=== PATIENT | male | born 1935 | race Caucasian/White ===

== ENCOUNTER 2017-05-04 16:04 | Inpatient (IN) ==
[2017-05-04] MEDS ORDERED: IPRATROPIUM/ALBUTEROL 3 ML AMPUL.NEB NEB ONE (16:10)
[2017-05-04] MEDS ORDERED: ONDANSETRON 4 MG/2 ML VIAL IV ONE (16:12)
[2017-05-04] MEDS ORDERED: 0.9 % SODIUM CHLORIDE 1,000 ML IV ONE ×2 (16:28→18:40)
--- NOTE | 2017-05-04 16:32 | XRay Report ---
CLINICAL INFORMATION: Dyspnea. Wheezing. TECHNIQUE: AP portable upright chest x-ray COMPARISON: Previous chest x-rays dated 12/28/2016 and 02/29/2016 FINDINGS: No focal pulmonary parenchymal infiltrate or mass. Lungs are negative. Heart size is within normal limits. No cardiomegaly. Normal pulmonary vascularity. No pulmonary edema. No pulmonary congestion. No pleural fluid. IMPRESSION: No acute abnormality. Interpreted and Authenticated by: Jasson Sauceda 05/04/17
[2017-05-04 16:54] LABS: Mean Cell Volume 100.3 fL (80.0-100.0); Mean Corpuscular HGB Conc 34.3 g/dL (31.0-36.0); Mean Corpuscular Hemoglobin 34.4 pg (26.0-34.0); Platelet Count 194 K/mcL (140-440); RBC 3.39 M/mcL (4.50-5.90); Red Cell Distribution Width 14.3 % (11.5-14.5)
[2017-05-04 17:10] LABS: ALT/SGPT 9 U/l (0-40); Albumin/Globulin Ratio 1.5 (1.0-2.3); Alkaline Phosphatase 61 U/L (39-117); Blood Urea Nitrogen 20 mg/dl (8-23)
[2017-05-04 17:22] LABS: Anisocytosis 1+ (NONE SEEN); Basophils % (Manual) 1 % (0-2); Eosinophils % (Manual) 1 % (0-7); Lymphocytes % 26 % (15-49); Monocytes % (Manual) 20 % (1-12); Platelet Estimate NORMAL (NORMAL); RBC Morphology ABNORM (NORMAL); Segmented Neutrophils % 52 % (38-78)
--- NOTE | 2017-05-04 19:05 | Emergency Department Note ---
Weakness HPI - General Chief complaint: Weakness Stated complaint: Weakness, dizziness, nausea Time Seen by Provider: 05/04/17 16:27 Source: patient Mode of arrival: EMS Limitations: no limitations - History of Present Illness HPI Narrative: 82-year-old male with a 3-4 day history of nausea without vomiting, weakness and confusion. Today he fell at home and managed to crawl out onto the deck. This was not witnessed but he did not hit his head or lose consciousness he just scraped his knee. He has been having some loose stool as well after getting fiber supplement from his . Decreased appetite. Temperature on entry to the ER is 99.9. Denies any significant pain shortness of breath or upper respiratory symptoms - Related Data Home Medications Medication Instructions Recorded Confirmed cyanocobalamin (vit B-12) 1,000 1,000 mcg PO QDAY tab 07/06/15 05/04/17 mcg tablet cholecalciferol (vitamin D3) 2,000 2,000 unit PO QDAY 04/05/16 05/04/17 unit capsule Previous Rx's Medication Instructions Recorded clobetasol 0.05 % topical cream 1 applic TOPICAL BID #15 g 06/28/16 tamsulosin 0.4 mg capsule 0.4 mg PO QDAY #90 cap 06/28/16 carvedilol 6.25 mg tablet 6.25 mg PO BID #180 tab 11/10/16 omeprazole 20 mg capsule,delayed 20 mg PO QDAY #90 cap 11/10/16 release ipratropium-albuterol 0.5 mg-3 3 ml INHALATION Q6HP PRN #120 ml 11/14/16 mg(2.5 mg base)/3 mL nebulization soln levothyroxine 50 mcg capsule 50 mcg PO QDAY 90 Days 11/16/16 allopurinol 100 mg tablet 100 mg PO QDAY #90 tab 01/30/17 folic acid 1 mg tablet 1 mg PO DAILY #90 tab 03/17/17 valsartan 40 mg tablet 40 mg PO QDAY #90 tab 03/17/17 furosemide 40 mg tablet 40 mg PO QDAY #90 tab 03/22/17 budesonide 0.25 mg/2 mL suspension 0.25 mg INHALATION BID #120 ml 04/11/17 for nebulization Allergies Allergy/AdvReac Type Severity Reaction Status Date / Time No Known Drug Allergies Allergy Verified 03/15/17 09:26 Review of Systems All systems ED: reviewed and negative except as stated. Past Medical History - Past Medical History Attestation: Yes: The following information was validated with the patient. Medical history: Reports: arthritis, CHF (35% ejection fraction or so per report ), COPD (On 2 L at home at night), coronary artery disease, GERD, hyperlipidemia , hypertension, myocardial infarction, osteoporosis, thyroid disease, other ( diverticulosis, gout) Surgical history ED: Reports: cataract, thyroidectomy, other (Seeds for prostate cancer) - Social History smoking status: Former smoker Alcohol use: Reports: Rarely Drug use: Reports: none Physical Exam Elderly male mildly ill-appearing. Normocephalic atraumatic. Conjunctive a clear sclerae nonicteric. No nasal congestion or discharge but he is wearing a nasal cannula oxygen. Oropharynx is pink and moist. Neck is supple without lymphadenopathy or thyromegaly. Heart is regular rate and rhythm no murmurs appreciated. Lungs are basically clear to auscultation bilaterally except for end expiratory wheeze mild dyspnea with exertion. No rales. Abdomen is soft nontender nondistended. No pedal edema. +2 radial pulse. Skin exam shows small dime sized abrasion on left patella area but otherwise no trauma seen. He is alert oriented and able to answer questions and does not seem particularly confused to me. However he is mentating slower than expected. No dysarthria or ataxia is noted - General Limitations: no limitations Course Vital Signs Temperature 99.9 F H 05/04/17 16:06 Pulse Rate 70 05/04/17 16:06 Respiratory Rate 20 05/04/17 16:06 Blood Pressure 123/83 05/04/17 16:06 Pulse Oximetry (%) 95 05/04/17 16:06 Temperature 98.2 F 05/05/17 04:22 Pulse Rate 62 05/05/17 03:08 Respiratory Rate 16 05/05/17 04:22 Blood Pressure 140/72 05/05/17 04:22 Pulse Oximetry (%) 91 05/05/17 04:22 Weakness - Lab Data Lab results reviewed: Yes I reviewed the patient's lab results. Result diagrams: 05/05/17 04:20 05/05/17 04:20 Lab Results 07/20/17 07/20/17 07/20/17 Range/Units 16:21 16:21 16:21 WBC 5.5 (4.5-11.0) K/mcL RBC 3.39 L (4.50-5.90) M/mcL Hgb 11.7 L (13.5-16.5) g/dL Hct 34.0 L (41.0-55.0) % MCV 100.3 H (80.0-100.0) fL MCH 34.4 H (26.0-34.0) pg MCHC 34.3 (31.0-36.0) g/dL RDW 14.3 (11.5-14.5) % Plt Count 194 (140-440) K/mcL MPV 7.9 (7.4-10.4) fL Total Counted 100 Seg Neutrophils % 52 (38-78) % Band Neutrophils % Not Reportable Lymphocytes % 26 (15-49) % Monocytes % (Manual) 20 H (1-12) % Eosinophils % (Manual) 1 (0-7) % Basophils % (Manual) 1 (0-2) % Platelet Estimate Normal (NORMAL) RBC Morphology Abnorm A (NORMAL) Anisocytosis 1+ A (NONE SEEN) VBG Lactic Acid 0.8 (0.5-2.2) mmol/L Sodium 127 L (133-145) mmol/L Potassium 4.4 (3.3-5.1) mmol/L Chloride 88 L (96-108) mmol/L Carbon Dioxide 25 (22-30) mmol/L Anion Gap 14.0 (8-16) BUN 20 (8-23) mg/dl Creatinine 1.1 (0.7-1.2) mg/dl GFR Calculation 61 Glucose 108 H (70-105) mg/dL Calcium 8.6 (8.6-10.4) mg/dl Total Bilirubin 0.5 (0.0-1.0) mg/dL AST 15 (0-37) U/l ALT 9 (0-40) U/l Alkaline Phosphatase 61 (39-117) U/L NT-Pro-B Natriuret Pep (0-450) pg/ml Total Protein 6.6 (5.9-8.4) gm/dL Albumin 4.0 (3.2-5.2) gm/dL Globulin 2.6 (2.2-3.7) gm/dL Albumin/Globulin Ratio 1.5 (1.0-2.3) Procalcitonin (<0.10) ng/mL TSH (0.27-5.01) uIU/ml 05/04/17 05/04/17 05/04/17 Range/Units 16:21 16:21 16:21 WBC (4.5-11.0) K/mcL RBC (4.50-5.90) M/mcL Hgb (13.5-16.5) g/dL Hct (41.0-55.0) % MCV (80.0-100.0) fL MCH (26.0-34.0) pg MCHC (31.0-36.0) g/dL RDW (11.5-14.5) % Plt Count (140-440) K/mcL MPV (7.4-10.4) fL Total Counted Seg Neutrophils % (38-78) % Band Neutrophils % Lymphocytes % (15-49) % Monocytes % (Manual) (1-12) % Eosinophils % (Manual) (0-7) % Basophils % (Manual) (0-2) % Platelet Estimate (NORMAL) RBC Morphology (NORMAL) Anisocytosis (NONE SEEN) VBG Lactic Acid (0.5-2.2) mmol/L Sodium (133-145) mmol/L Potassium (3.3-5.1) mmol/L Chloride (96-108) mmol/L Carbon Dioxide (22-30) mmol/L Anion Gap (8-16) BUN (8-23) mg/dl Creatinine (0.7-1.2) mg/dl GFR Calculation Glucose (70-105) mg/dL Calcium (8.6-10.4) mg/dl Total Bilirubin (0.0-1.0) mg/dL AST (0-37) U/l ALT (0-40) U/l Alkaline Phosphatase (39-117) U/L NT-Pro-B Natriuret Pep 1783.0 H (0-450) pg/ml Total Protein (5.9-8.4) gm/dL Albumin (3.2-5.2) gm/dL Globulin (2.2-3.7) gm/dL Albumin/Globulin Ratio (1.0-2.3) Procalcitonin < 0.05 (<0.10) ng/mL TSH 2.06 (0.27-5.01) uIU/ml Urinalysis point of care dipstick shows specific gravity 1.015 otherwise normal - Radiology Data Radiology results reviewed: Yes I reviewed the patient's radiology results. Chest x-ray shows no acute cardiopulmonary disease CT the head shows no acute abnormality-chronic small vessel ischemic changes - EKG Data EKG attestation: Yes I reviewed and interpreted this EKG. EKG results narrative: EKG shows left bundle branch block but otherwise normal sinus rhythm with a rate of 64 no evidence of ischemia Disposition Pt seen by [employer]S MANAGER/PA only: No (MD only) Clinical Impression: Fever, unknown origin Summary: Patient had a fall in conjunction with lightheadedness weakness confusion and fever. He did not injure himself on the fall but concern for where the fever is coming from-at this point exam imaging and laboratory are not revealing-He is not complaining of significant pain. Discussed scenario with Dr. Wilson who agreed to accept patient for further workup and evaluation as an inpatient Disposition: Xfer As Inpt ([facility] Condition: Fair
--- NOTE | 2017-05-04 19:38 | Cat Scan Report ---
CLINICAL INFORMATION: Weakness COMPARISON: MRI scan 03/26/2009 TECHNIQUE: Axial noncontrast-enhanced images through the brain. FINDINGS: No acute intracranial hemorrhage. No subdural hematoma. No subarachnoid hemorrhage. No intra-axial hematoma. There is extensive white matter abnormality consistent with small vessel ischemic change. No focal attenuation abnormality or localized mass effect. There is atrophy with ventricular enlargement and enlargement of superficial subarachnoid spaces. No hyperdense middle cerebral artery sign Brainstem and cerebellum are negative. No calvarial fracture. No lytic lesion. Skull base is negative IMPRESSION: 1. Cerebral atrophy 2. White matter abnormality consistent with small vessel ischemic change 3. No acute intracranial hemorrhage Interpreted and Authenticated by: Jasson Sauceda 05/04/17
[2017-05-04] MEDS ORDERED: HYDROcodone/APAP 5/325MG TABLET PO PRN (20:22)
[2017-05-04] MEDS ORDERED: ONDANSETRON 4 MG/2 ML VIAL IV PRN (20:22)
[2017-05-04] MEDS ORDERED: MAGNESIUM HYDROXIDE 30 ML ORAL.SUSP PO PRN (20:22)
[2017-05-04] MEDS ORDERED: ACETAMINOPHEN 325 MG TABLET PO PRN (20:22)
[2017-05-04] MEDS ORDERED: NALOXONE HCL 0.4 MG/ML VIAL IV PRN (20:22)
[2017-05-04] MEDS ORDERED: predniSONE 20 MG TABLET PO ONE (20:34)
[2017-05-04] MEDS ORDERED: AZITHROMYCIN 250 MG TABLET PO ONE (20:34)
--- NOTE | 2017-05-04 20:45 | Internal Med History&Physical ---
Medical - H&P: HPI Patient information: Note initiated : 05/04/17 at 8:39 pm Service Date, if different from initiated Date: [] Patient: Cezar Damon a 82 y/o M admitted on 05/04/17 for Weakness, dizziness, nausea. Chief Complaint: [] History of present illness: Mr. Damon is a 82 year old M with h/o chf, copd, OA, mild memory loss, lives with his , presents to the ER with complaints of weakness and not feeling well x 1 week. according to the patient he has not been feeling well and his condition has been gradually declining, however over the last 1 week he has noticed that he has been much more weaker than usual. Walking across the room without getting short of breath. He has had multiple episodes of falls, denies any presyncope or syncopal like episodes. The patient notes that he gets up from the bed and after while feels weak in his knees and drops down. He denies any acute head injury. The patient notes he may have had a viral syndrome,and lower abdominal pain associated with some nausea over the last 1 week. he pain is intermittent in the lower abdomen, no aggravating or relieving factors, nonradiating, not associated with food always or micturition, He has had decline in his oral intake and has not eaten much since then. He admits to being compliant with his medications. according to the patient's the patient is also more confused and more forgetful over the last 1 week. The patient presented to the ER where he had low-grade temperature of 99.9,his sodium level was 127 and chloride was 84, the rest of the blood work was unremarkable, he had a negative chest x-ray, negative CT head normal WBC count, and a normal TSH level. Given that the patient was weakand unable to return home safely withlow sodium he was admitted to the hospital for further management. On my exam I noted that the patient also had wheezing,and decreased air entry bilaterally, which seems to be a chronic issue for him as his PCP also noted the same in his last note. but given the decline in his functional status I will treat them as COPD exacerbation with prednisone and nebulizers. All systems: reviewed and no additional remarkable complaints except as stated ( as per HPI) Medical - H&P: [facility] Medical history: Medical History (Last Updated 05/04/17 @ 20:45 by Fernando Wilson MD) Hypothyroidism (Chronic) Carcinoma of prostate (Chronic) Peripheral Vascular Disease (Chronic) Pain in both knees (Chronic) History of echocardiogram (Chronic 09/28/15) Diverticulitis (Resolved) Anemia (Chronic) Cardiomyopathy (Chronic) Constipation (Chronic) Diverticulosis of intestine (Chronic) Urethral discharge (Resolved 04/07/14) Sepsis (Resolved 06/06/13) Rhabdomyolysis (Resolved 06/06/14) Respiratory failure, acute (Resolved 06/06/13) Renal insufficiency (Chronic) Renal failure, acute (Resolved 06/06/13) Radicular leg pain (Chronic) Pulmonary edema (Resolved) Pneumonia (Resolved) Peptic ulcer disease (Inactive) Osteopenia (Chronic) Olecranon bursitis (Resolved 06/06/13) Myocardial infarction acute (Inactive 06/06/13) Lower extremity weakness (Chronic 06/06/13) Low back pain (Chronic) Right leg swelling (Resolved) Hyperkalemia (Chronic) Hernia, hiatal (Chronic) Hemorrhoids, internal (Chronic 01/27/14) Hematochezia (Resolved) Gout (Chronic 01/20/14) Diverticulitis of colon (Resolved) Degenerative arthritis (Chronic) CHF (congestive heart failure) (Resolved) Coccyx pain (Chronic) Cervicalgia (Chronic) Cardiomegaly (Chronic) Bronchitis, chronic (Chronic) Aspiration pneumonia (Resolved 06/06/13) Chronic kidney disease (CKD) (Chronic) Colon adenoma (Chronic) Prostate cancer (Inactive) Shortness of breath (Chronic) Esophageal stricture (Chronic) GERD (gastroesophageal reflux disease) (Chronic) Anemia, macrocytic (Chronic) Beck esophagus (Chronic) Osteoarthritis (Chronic) Hyperlipidemia (Chronic) Hypertension (Chronic) Type 2 diabetes mellitus (Chronic) Nocturnal hypoxia (Chronic 04/09/14) Dysphagia (Chronic 08/06/13) Blister (Resolved) Chronic obstructive pulmonary disease (Chronic) Low oxygen saturation (Resolved) Abdominal pain (Resolved) Surgical history: Past Surgical History (Last Updated 03/02/17 @ 14:10 by [email or web address]) History of prostate surgery (Resolved) H/O thyroidectomy (Resolved) Feeding by G-tube (Resolved) H/O esophagogastroduodenoscopy (Resolved 01/31/14) H/O cystoscopy (Resolved) History of colonoscopy (Resolved 01/27/14) Pertinent family history: Family History Mother Cerebrovascular accident (CVA) Unknown Diabetes mellitus Father Malignant neoplasm of prostate Medical - H&P: Meds Home Medications Medication Instructions Recorded Confirmed Type cyanocobalamin (vit B-12) 1,000 1,000 mcg PO QDAY tab 07/06/15 05/04/17 History mcg tablet cholecalciferol (vitamin D3) 2,000 2,000 unit PO QDAY 04/05/16 05/04/17 History unit capsule clobetasol 0.05 % topical cream 1 applic TOPICAL BID #15 g 06/28/16 05/04/17 Rx tamsulosin 0.4 mg capsule 0.4 mg PO QDAY #90 cap 06/28/16 05/04/17 Rx carvedilol 6.25 mg tablet 6.25 mg PO BID #180 tab 11/10/16 05/04/17 Rx omeprazole 20 mg capsule,delayed 20 mg PO QDAY #90 cap 11/10/16 05/04/17 Rx release ipratropium-albuterol 0.5 mg-3 3 ml INHALATION Q6HP PRN #120 ml 11/14/16 Rx mg(2.5 mg base)/3 mL nebulization soln levothyroxine 50 mcg capsule 50 mcg PO QDAY 90 Days 11/16/16 05/04/17 Rx allopurinol 100 mg tablet 100 mg PO QDAY #90 tab 01/30/17 05/04/17 Rx folic acid 1 mg tablet 1 mg PO DAILY #90 tab 03/17/17 05/04/17 Rx valsartan 40 mg tablet 40 mg PO QDAY #90 tab 03/17/17 05/04/17 Rx furosemide 40 mg tablet 40 mg PO QDAY #90 tab 03/22/17 05/04/17 Rx budesonide 0.25 mg/2 mL suspension 0.25 mg INHALATION BID #120 ml 04/11/1705/04 Rx for nebulization Allergies Allergy/AdvReac Type Severity Reaction Status Date / Time No Known Drug Allergies Allergy Verified 12/28/16 09:26 Medical - H&P: Exam - Constitutional Vitals: Temp Pulse Resp BP Pulse Ox 97.6 F 60 20 121/76 96 05/04/17 18:18 05/04/17 19:02 05/04/17 19:02 05/04/17 19:02 05/04/17 19:02 Exam: GENERAL: The patient is a well-developed, well-nourished in no apparent distress. Is alert and oriented x3. VITAL SIGNS: Reviewed and as noted elsewhere. HEENT: Head is normocephalic and atraumatic. Extraocular muscles are intact. Pupils are equal, round, and reactive to light. Nares appeared normal. Mouth appears any without lesions. Mucous membranes are dry NECK: Normal to inspection, Supple, No lymphadenopathy or thyromegaly. LUNGS: Air entry equal on both sides, air entry decreased in both side, prolonged expiratory phase, bilateral wheezing. HEART: Regular rate and rhythm normal, S1 and S2 heard, no Gallop, S3 or Rub Noted, No Gross murmur heard. ABDOMEN: Soft, nontender, and nondistended. Positive bowel sounds. No hepatosplenomegaly was noted. EXTREMITIES: No cyanosis, clubbing, rash, lesions or edema. NEUROLOGIC: alert and oriented Cranial nerves II through XII are grossly intact. Motor and Sensory System Grossly Intact PSYCHIATRIC: Normal affect, Normal Mood. Appropriate Behavior. SKIN: No ulceration or wounds noted, No jaundice, No rash noted. Medical - H&P: Reslt - Labs CBC & Chem 7: 05/04/17 16:21 05/04/17 16:21 Medical - H&P: A/P - Narrative A/P Narrative: A/P Acute Hyponatremia: clinically dry, poor intake, along with use of lasix may have resulted in Hypovolumic hyponatremia, IV fljids for now, hold lasix, Reassess in AM, cortisol check in AM tsh is normal, Will broaden workup if sodium level does not return to normal with fluids. COPD exacerbation-given the patient has decreased functional status, low-grade temperature,bilateral wheezing will treat with azithromycin, D.O. nebs,and oral prednisone. Increased frequency of falls-clinically does not appear to be syncope or presyncope, given his history of heart failure will monitor on telemetry to see if he has any transient arrhythmias. Most likely due to weakness secondary to dehydration Increased confusion, secondary to above, ABGs reviewed no evidence of CO2 narcosis. Congestive heart failure or more clinically dry at this point hold Lasix for now , IV fluids, continue his area arb and beta blockers. [id number] fever, resolved the ED, chest x-ray is negative, urinalysis is normal, pro-calcitonin is negative, blood pressure is stable and lactic acid is normal, we'll just monitor for now. Likely from the viral syndrome. Next Abdominal pain-likely viral in nature, patient had some nausea but no vomiting, if patient's symptoms persist we'll get a CT abdomen and pelvis with contrast for further evaluation Should he develop fever again we'll definitely get a CT abdomen and pelvis. Blood cultures have been drawn. DVT hep sq Diet cardiac Full code. 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
[2017-05-04] MEDS ORDERED: BUDESONIDE 1 PUFF INHALER INH SCH (21:00)
[2017-05-04] MEDS: 0.9 % SODIUM CHLORIDE 1,000 ML IV SCH (21:13)
[2017-05-04] MEDS: BUDESONIDE 0.5 MG/2 ML AMPUL.NEB NEB SCH (21:13)
[2017-05-04] MEDS: IPRATROPIUM/ALBUTEROL 3 ML AMPUL.NEB NEB SCH (22:48)
[2017-05-05] MEDS: IPRATROPIUM/ALBUTEROL 3 ML AMPUL.NEB NEB SCH ×6 (02:56→22:52)
[2017-05-05 06:20] LABS: Basophils # (Auto) 0 K/mcL (0.0-0.3); Basophils % (Auto) 0 % (0.0-2.0); Eosinophils # (Auto) 0 K/mcL (0.0-0.7); Eosinophils % (Auto) 0 % (0.0-7.0); Granulocytes % (Auto) 90.2 % (38.0-78.0); Lymphocytes # (Auto) 0.5 K/mcL (1.5-4.8); Mean Cell Volume 102.9 fL (80.0-100.0); Mean Corpuscular HGB Conc 33.9 g/dL (31.0-36.0); Mean Corpuscular Hemoglobin 34.9 pg (26.0-34.0); Monocytes # (Auto) 0.1 K/mcL (0.1-0.9); Monocytes % (Auto) 1.8 % (1.0-12.0); Platelet Count 197 K/mcL (140-440); RBC 3.36 M/mcL (4.50-5.90); Red Cell Distribution Width 14.5 % (11.5-14.5)
[2017-05-05 06:57] LABS: ALT/SGPT 9 U/l (0-40); Albumin 3.7 gm/dL (3.2-5.2); Albumin/Globulin Ratio 1.4 (1.0-2.3); Alkaline Phosphatase 59 U/L (39-117); Bilirubin,Direct < 0.2 mg/dL (0.0-0.3); Blood Urea Nitrogen 18 mg/dl (8-23); Gamma Glutamyl Transpeptidase 16 U/L (8-61); Magnesium 1.7 mg/dL (1.6-2.5); Uric Acid 4.8 mg/dL (2.5-8.0)
[2017-05-05] MEDS: BUDESONIDE 0.5 MG/2 ML AMPUL.NEB NEB SCH ×2 (07:38→19:23)
[2017-05-05] MEDS: LEVOTHYROXINE 50 MCG TABLET PO SCH (07:40)
[2017-05-05] MEDS ORDERED: 0.9 % SODIUM CHLORIDE 1,000 ML IV ONE (08:05)
[2017-05-05] MEDS: VITAMIN D3 1,000 UNIT TABLET PO SCH (10:00)
[2017-05-05] MEDS: AZITHROMYCIN 250 MG TABLET PO SCH (10:32)
[2017-05-05] MEDS: LOSARTAN 25 MG TABLET PO SCH (10:33)
[2017-05-05] MEDS: TAMSULOSIN 0.4 MG CAPSULE PO SCH (10:33)
[2017-05-05] MEDS: CYANOCOBALAMIN (VITAMIN B-12) 500 MCG TABLET PO SCH (10:33)
[2017-05-05] MEDS: FOLIC ACID 1 MG TABLET PO SCH (10:33)
[2017-05-05] MEDS: CARVEDILOL 3.125 MG TABLET PO SCH ×2 (10:34→17:36)
[2017-05-05] MEDS: ALLOPURINOL 100 MG TABLET PO SCH (10:34)
[2017-05-05] MEDS: predniSONE 20 MG TABLET PO SCH (10:34)
[2017-05-05] MEDS: OMEPRAZOLE 20 MG CAPSULE PO SCH (10:34)
[2017-05-05] MEDS: 0.9 % SODIUM CHLORIDE 1,000 ML IV SCH ×2 (10:35→22:51)
[2017-05-05 13:36] LABS: Blood Urea Nitrogen 18 mg/dl (8-23)
--- NOTE | 2017-05-05 15:43 | Internal Med Progress Note ---
Medical - PN: Subj Patient information: Note initiated : 05/05/17 at 3:43 pm Service Date, if different from initiated Date: [] Patient: Cezar Damon a 82 y/o M admitted on 05/04/17 for Weakness, Dizziness, Nausea/COPD, Hyponatremia. Chief Complaint: [] Interval history: Mr. Damon is a 82 year old M with h/o chf, copd, OA, mild memory loss, lives with his , presents to the ER with complaints of weakness and not feeling well x 1 week. according to the patient he has not been feeling well and his condition has been gradually declining, however over the last 1 week he has noticed that he has been much more weaker than usual. Walking across the room without getting short of breath. He has had multiple episodes of falls, denies any presyncope or syncopal like episodes. The patient notes that he gets up from the bed and after while feels weak in his knees and drops down. He denies any acute head injury. The patient notes he may have had a viral syndrome,and lower abdominal pain associated with some nausea over the last 1 week. he pain is intermittent in the lower abdomen, no aggravating or relieving factors, nonradiating, not associated with food always or micturition, He has had decline in his oral intake and has not eaten much since then. He admits to being compliant with his medications. according to the patient's the patient is also more confused and more forgetful over the last 1 week. The patient presented to the ER where he had low-grade temperature of 99.9,his sodium level was 127 and chloride was 84, the rest of the blood work was unremarkable, he had a negative chest x-ray, negative CT head normal WBC count, and a normal TSH level. Given that the patient was weakand unable to return home safely withlow sodium he was admitted to the hospital for further management. On my exam I noted that the patient also had wheezing,and decreased air entry bilaterally, which seems to be a chronic issue for him as his PCP also noted the same in his last note. but given the decline in his functional status I will treat them as COPD exacerbation with prednisone and nebulizers. 05/05: Patient seen examined, no acute events, feeling bit better, denies any abdominal symptoms, breathing better, but did not get out of bed this AM to know if his breathing is any better with activity. His labs reviewed NA is slightly worse at 126, will repeat this afternoon, his cortisol is low, but he did get prednisone last night, so not sure if this affected his readings, tsh is wnl. he appears more clear today. Pertinent ROS: Denies headache, dizziness Denies chest pain, palpitations Denies cough or shortness of breath (chr but improving) Denies abdominal pain, nausea or vomiting. - Constitutional Vitals: Vital Signs Temp Pulse Resp BP Pulse Ox 98.0 F 69 18 135/68 91 05/05/17 12:00 05/05/17 15:37 05/05/17 15:37 05/05/17 12:01 05/05/17 15:37 Period Temp Pulse Resp BP Sys/Soriano Pulse Ox Last 24 Hr 97.8 F-98.2 F 60-77 16-18 127-140/54-99 90-94 Intake and Output 05/05/17 05/05/17 05/05/17 05:59 13:59 21:59 Intake Total 60 / 60 2450 / 2450 240 / 240 Output Total 527 / 527 850 / 850 125 / 125 Balance -467 / -467 1600 / 1600 115 / 115 Weight 198 lb Patient Weight 05/06/17 05:59 Weight 198 lb Intake & Output: Intake & Output 05/05/17 05/05/17 05/05/17 05:59 13:59 21:59 Intake Total 60 / 60 2450 / 2450 240 / 240 Output Total 527 / 527 850 / 850 125 / 125 Balance -467 / -467 1600 / 1600 115 / 115 Weight 198 lb Intake: IV 1999 / 1999 Sodium Chloride 0.9% 1, 1000 / 1000 000 ml @ 84 mls/hr IV . [id number] DEEJAY Rx#:[id number] Oral 60 / 60 450 / 450 240 / 240 Output: Void Amount 525 / 525 850 / 850 125 / 125 # of times incontinent of 2 / 2 urine Other: Meal Breakfast Lunch Percent of Meal Consumed 100% 100% Feeding Ability Assist with Tray Set Up # Voids 4 # Bowel Movements 0 Exam: Constitutional; Afebrile, cooperative, alert, not in distress. Eyes- No icterus, , No periorbital swelling Ears- Ext ear normal, hearing normal to conversation. Neck- Midline trachea, supple Respiratory system: Air Entry equal on both sides, mild wheezing, prolonged exp phase. CVS- Rate rhythm regular, S1,S2 heard, no gallop, no rub. 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 Medical - PN: Obj Da - Labs CBC & Chem 7: 05/05/17 04:20 05/05/17 12:56 Labs: Abnormal Lab Results 05/05/17 05/05/17 05/05/17 12:56 04:20 04:20 RBC Hgb Hct MCV MCH Gran % Lymph % (Auto) Lymph # (Auto) Sodium 130 L 126 L Chloride 91 L Carbon Dioxide 18 L Glucose 116 H 117 H Calcium 8.2 L 8.3 L Cortisol AM Sample 3.9 L 05/05/17 04:20 RBC 3.36 L Hgb 11.7 L Hct 34.6 L MCV 102.9 H MCH 34.9 H Gran % 90.2 H Lymph % (Auto) 8.0 L Lymph # (Auto) 0.5 L Sodium Chloride Carbon Dioxide Glucose Calcium Cortisol AM Sample Meds: Medications Acetaminophen (Tylenol) 650 mg PO Q6HP PRN PRN Reason: PAIN/FEVER > 101 Hydrocodone Bitart/Acetaminophen (Hilo 5/325mg) 1 tab PO Q4HP PRN PRN Reason: Pain Albuterol/Ipratropium (Duoneb) 3 ml NEB Q4HRT [facility] Last Admin: 05/05/17 15:36 Dose: 3 ml Allopurinol (Zyloprim) 100 mg PO QDAY [facility] Last Admin: 05/05/17 10:34 Dose: 100 mg Azithromycin (Zithromax) 500 mg PO DAILY [facility] Stop: 05/08/17 09:01 Last Admin: 05/05/17 10:32 Dose: 500 mg Budesonide (Pulmicort) 0.25 mg NEB Q12 [facility] Last Admin: 05/05/17 07:38 Dose: 0.25 mg Carvedilol (Coreg) 6.25 mg PO BIDCC [facility] Last Admin: 05/05/17 10:34 Dose: 6.25 mg Cyanocobalamin (Vitamin B-12) 1,000 mcg PO DAILY [facility] Last Admin: 05/05/17 10:33 Dose: 1,000 mcg Folic Acid (Folic Acid) 1 mg PO DAILY [facility] Last Admin: 05/05/17 10:33 Dose: 1 mg Sodium Chloride (Sodium Chloride 0.9%) 1,000 mls @ 84 mls/hr IV .[id number] [facility] Stop: 05/06/17 08:04 Last Admin: 05/05/17 10:35 Dose: 84 mls/hr [facility]othy[facility]ine [facility]) [facility] Last Admin: 05/05/17 07:40 Dose: 50 mcg Losartan Potassium (Cozaar) 25 mg PO DAILY [facility] Last Admin: 05/05/17 10:33 Dose: 25 mg Magnesium Hydroxide (Milk Of Magnesia) 30 ml PO DAILYP PRN PRN Reason: Constipation Naloxone HCl (Narcan) 0.1 mg IV Q2MIN PRN PRN Reason: Opiate Reversal Omeprazole (Prilosec) 20 mg PO QDAY [facility] Last Admin: 05/05/17 10:34 Dose: 20 mg Ondansetron HCl (Zofran) 4 mg IV Q4HP PRN PRN Reason: Nausea And Vomiting Last Admin: 05/05/17 14:39 Dose: 4 mg Prednisone (Prednisone) 40 mg PO [facility] Last Admin: 05/05/17 10:34 Dose: 40 mg Tamsulosin HCl (Flomax) 0.4 mg PO QDAY [facility] Last Admin: 05/05/17 10:33 Dose: 0.4 mg Vitamin D (Vitamin D3) 2,000 unit PO DAILY [facility] Last Admin: 05/05/17 10:00 Dose: 2,000 unit Medical - PN: A/P - Time Spent With Patient Total time spent is greater than 50% in coordination of care (as documented) at patient's floor/unit and/or counseling patient: - Narrative A/P Narrative: A/P Acute Hyponatremia: clinically dry, poor intake, along with use of lasix may have resulted in Hypovolumic hyponatremia, continue IV fluids and repeat NA today ,if still low will obtain serum osm, urine osm. urine na. COPD exacerbation: clinically improving, continue steroids, duonebs and zithromax. Increased frequency of falls-clinically does not appear to be syncope or presyncope,tele neg so far, likely from weakness, iv fluids and monitor. Increased confusion, secondary to above, improving. Congestive heart failure or more clinically dry at this point hold Lasix for now , IV fluids, continue his area arb and beta blockers. [id number] fever, resolved no e/o infection. Abdominal pain-likely viral in nature, pt denies symptoms today, if recurs consider Abdominal CT DVT hep sq Diet cardiac Full code. Medical - PN: Qual - VTE Deep Vein Thrombosis/Pulmonary Embolism Present on Admission: No
[2017-05-05 21:50] LABS: Appearance,Urine CLEAR; Bacteria,Urine FEW /hpf (0); Bilirubin,Urine NEG (NEG); Color,Urine YELLOW; Glucose,Urine (UA) NEGATIVE (NEG); Leukocyte Esterase,Urine NEG /uL (NEG); Mucus,Urine FEW /hpf (0); Nitrate,Urine NEG (NEG); Protein,Urine NEG (NEG); Specific Gravity,Urine 1.014 (1.000-1.035); Urine Blood NEG mg/dL (<0.03); Urine RBC < 1 /hpf (0-1); Urine Squamous Epithelial Cell 0 /hpf (0-4); Urine WBC < 1 /hpf (0-4); Urobilinogen,Urine NEG (NEG)
[2017-05-06] MEDS: IPRATROPIUM/ALBUTEROL 3 ML AMPUL.NEB NEB SCH ×6 (02:25→23:22)
[2017-05-06 05:45] LABS: Basophils # (Auto) 0 K/mcL (0.0-0.3); Basophils % (Auto) 0 % (0.0-2.0); Eosinophils # (Auto) 0 K/mcL (0.0-0.7); Eosinophils % (Auto) 0.2 % (0.0-7.0); Granulocytes % (Auto) 88.7 % (38.0-78.0); Lymphocytes # (Auto) 0.6 K/mcL (1.5-4.8); Lymphocytes % (Auto) 4.6 % (15.5-49.0); Mean Cell Volume 102.5 fL (80.0-100.0); Mean Corpuscular Hemoglobin 34.8 pg (26.0-34.0); Monocytes # (Auto) 0.8 K/mcL (0.1-0.9); Monocytes % (Auto) 6.5 % (1.0-12.0); Platelet Count 186 K/mcL (140-440); RBC 2.93 M/mcL (4.50-5.90); Red Cell Distribution Width 14.3 % (11.5-14.5)
[2017-05-06 06:06] LABS: ALT/SGPT 8 U/l (0-40); Albumin 3.4 gm/dL (3.2-5.2); Albumin/Globulin Ratio 1.7 (1.0-2.3); Alkaline Phosphatase 47 U/L (39-117); Bilirubin,Direct < 0.2 mg/dL (0.0-0.3); Blood Urea Nitrogen 18 mg/dl (8-23); Gamma Glutamyl Transpeptidase 12 U/L (8-61); Magnesium 1.8 mg/dL (1.6-2.5); Uric Acid 4.2 mg/dL (2.5-8.0)
[2017-05-06] MEDS: LEVOTHYROXINE 50 MCG TABLET PO SCH (07:14)
[2017-05-06] MEDS: predniSONE 20 MG TABLET PO SCH (07:14)
[2017-05-06] MEDS: CARVEDILOL 3.125 MG TABLET PO SCH ×2 (07:14→17:55)
--- NOTE | 2017-05-06 07:26 | Internal Med Progress Note ---
Medical - PN: Subj Patient information: Note initiated : 05/06/17 at 7:24 am Service Date, if different from initiated Date: [] Patient: Cezar Damon a 82 y/o M admitted on 05/04/17 for Weakness, Dizziness, Nausea/COPD, Hyponatremia. Chief Complaint: weakness Interval history: Mr. 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 Walking across the room without getting short of breath. He has had multiple episodes of falls, denies any presyncope or syncopal like episodes. The patient notes that he gets up from the bed and after while feels weak in his knees and drops down. He denies any acute head injury. The patient notes he may have had a viral syndrome ,and lower abdominal pain associated with some nausea over the last 1 week. he pain is intermittent in the lower abdomen, no aggravating or relieving factors, nonradiating, not associated with food always or micturition, He has had decline in his oral intake and has not eaten much since then. He admits to being compliant with his medications. 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 The patient presented to the ER where he had low-grade temperature of 99.9,his sodium level was 127 and chloride was 84, the rest of the blood work was unremarkable, he had a negative chest x-ray, negative CT head normal WBC count, and a normal TSH level. Given that the patient was weak and unable to return home safely with low sodium he was admitted to the hospital for further management. On my exam I noted that the patient also had wheezing,and decreased air entry bilaterally, which seems to be a chronic issue for him as his PCP also noted the same in his last note. but given the decline in his functional status I will treat them as COPD exacerbation with prednisone and nebulizers. 05/05: Patient seen examined, no acute events, feeling bit better, denies any abdominal symptoms, breathing better, but did not get out of bed this AM to know if his breathing is any better with activity. His labs reviewed NA is slightly worse at 126, will repeat this afternoon, his cortisol is low, but he did get prednisone last night, so not sure if this affected his readings, tsh is wnl. he appears more clear today. 05/06: Continues to improve mentally. No further dizziness. He had dysuria today and WBC are increasing. Urine dip shows no pyuria but does have bacteria, and given his sx, will start CTX and send for cx. DC IVF as he is eating and drinking well and hypoNa has resolved. Has had no significant arrhythmias; will DC tele. Discussed with and patient today that he is not ready to DC today d/t increasing WBC and likely will be here until Monday. Pertinent ROS: no fever or cp - Constitutional Vitals: Vital Signs Temp Pulse Resp BP Pulse Ox 98.2 F 54 L 18 111/52 95 05/06/17 04:20 05/06/17 02:42 05/06/17 04:20 05/06/17 04:20 05/06/17 04:20 Period Temp Pulse Resp BP Sys/Soriano Pulse Ox Last 24 Hr 95.8 F-98.2 F 54-79 14- 111-164/52-98 91-100 Intake and Output 05/05/17 05/06/17 05/06/17 21:59 05:59 13:59 Intake Total 360 / 360 1120 / 1120 Output Total 325 / 325 676 / 676 Balance 35 / 35 444 / 444 Weight 202 lb Intake & Output: Intake & Output 05/05/17 05/06/17 05/06/17 21:59 05:59 13:59 Intake Total 360 / 360 1120 / 1120 Output Total 325 / 325 676 / 676 Balance 35 / 35 444 / 444 Weight 202 lb Intake: IV 1000 / 1000 Sodium Chloride 0.9% 1, 1000 / 1000 000 ml @ 84 mls/hr IV . [id number] DEEJAY Rx#:[id number] Oral 360 / 360 120 / 120 Output: Void Amount 325 / 325 675 / 675 # of times incontinent of / urine Other: Meal Lunch Percent of Meal Consumed 100% Feeding Ability Assist with Tray Set Up # Bowel Movements 1 0 - Head Head exam: Present: atraumatic, normocephalic - Eye Eye exam: Present: PERRL. Absent: conjunctival injection, scleral icterus - Respiratory Respiratory exam: Absent: accessory muscle use Additional comments: R crackles. No wheeze - Cardiovascular Cardiovascular exam: Present: normal rate and rhythm - GI/Abdominal GI/Abdominal exam: Present: normal bowel sounds, soft. Absent: tenderness - Extremities Exam Extremities exam: Present: normal inspection. Absent: pedal edema - Neurological Exam Neurological exam: Present: alert, CN II-XII intact, oriented X3 Medical - PN: Obj Da - Labs CBC & Chem 7: 05/06/17 04:00 05/06/17 04:00 Labs: Abnormal Lab Results 05/06/17 05/06/17 05/05/17 04:00 04:00 21:03 WBC 12.4 H RBC 2.93 L Hgb 10.2 L Hct 30.0 L MCV 102.5 H MCH 34.8 H Gran % 88.7 H Lymph % (Auto) 4.6 L Gran # 11.0 H Lymph # (Auto) 0.6 L Sodium 132 L Chloride Carbon Dioxide 21 L Glucose 122 H Calcium 8.3 L Total Protein 5.4 L Globulin 2.0 L Cortisol AM Sample Urine Ketones 5/tr A Urine Bacteria Few A 05/05/17 05/05/17 05/05/17 12:56 04:20 04:20 WBC RBC Hgb Hct MCV MCH Gran % Lymph % (Auto) Gran # Lymph # (Auto) Sodium 130 L 126 L Chloride 91 L Carbon Dioxide 18 L Glucose 116 H 117 H Calcium 8.2 L 8.3 L Total Protein Globulin Cortisol AM Sample 3.9 L Urine Ketones Urine Bacteria 05/05/17 04:20 WBC RBC 3.36 L Hgb 11.7 L Hct 34.6 L MCV 102.9 H MCH 34.9 H Gran % 90.2 H Lymph % (Auto) 8.0 L Gran # Lymph # (Auto) 0.5 L Sodium Chloride Carbon Dioxide Glucose Calcium Total Protein Globulin Cortisol AM Sample Urine Ketones Urine Bacteria Meds: Medications Acetaminophen (Tylenol) 650 mg PO Q6HP PRN PRN Reason: PAIN/FEVER > 101 Hydrocodone Bitart/Acetaminophen (Temperance 5/325mg) 1 tab PO Q4HP PRN PRN Reason: Pain Albuterol/Ipratropium (Duoneb) 3 ml NEB Q4HRT [facility] Last Admin: 05/06/17 02:25 Dose: 3 ml Allopurinol (Zyloprim) 100 mg PO QDAY [facility] Last Admin: 05/05/17 10:34 Dose: 100 mg Azithromycin (Zithromax) 500 mg PO DAILY [facility] Stop: 05/08/17 09:01 Last Admin: 05/05/17 10:32 Dose: 500 mg Budesonide (Pulmicort) 0.25 mg NEB Q12 [facility] Last Admin: 05/05/17 19:23 Dose: 0.25 mg Carvedilol (Coreg) 6.25 mg PO BIDCC [facility] Last Admin: 05/06/17 07:14 Dose: 6.25 mg Cyanocobalamin (Vitamin B-12) 1,000 mcg PO DAILY [facility] Last Admin: 05/05/17 10:33 Dose: 1,000 mcg Folic Acid (Folic Acid) 1 mg PO DAILY [facility] Last Admin: 05/05/17 10:33 Dose: 1 mg Sodium Chloride (Sodium Chloride 0.9%) 1,000 mls @ 84 mls/hr IV .[id number] [facility] Stop: 05/06/17 08:04 Last Admin: 05/05/17 22:51 Dose: 84 mls/hr [facility]othy[facility]ine [facility]) [facility] Last Admin: 05/06/17 07:14 Dose: 50 mcg Losartan Potassium (Cozaar) 25 mg PO DAILY [facility] Last Admin: 05/05/17 10:33 Dose: 25 mg Magnesium Hydroxide (Milk Of Magnesia) 30 ml PO DAILYP PRN PRN Reason: Constipation Naloxone HCl (Narcan) 0.1 mg IV Q2MIN PRN PRN Reason: Opiate Reversal Omeprazole (Prilosec) 20 mg PO QDAY [facility] Last Admin: 05/05/17 10:34 Dose: 20 mg Ondansetron HCl (Zofran) 4 mg IV Q4HP PRN PRN Reason: Nausea And Vomiting Last Admin: 05/05/17 14:39 Dose: 4 mg Prednisone (Prednisone) 40 mg PO QAMCC [facility] Last Admin: 05/06/17 07:14 Dose: 40 mg Tamsulosin HCl (Flomax) 0.4 mg PO QDAY [facility] Last Admin: 05/05/17 10:33 Dose: 0.4 mg Vitamin D (Vitamin D3) 2,000 unit PO DAILY [facility] Last Admin: 05/05/17 10:00 Dose: 2,000 unit Medical - PN: A/P - Time Spent With Patient Total time spent is greater than 50% in coordination of care (as documented) at patient's floor/unit and/or counseling patient: Greater than 35 minutes - Narrative A/P Narrative: A/P Acute Hyponatremia: clinically dry, poor intake, along with use of lasix may have resulted in Hypovolemic hyponatremia. Na 132 today; will DC IVF COPD exacerbation: clinically improving, continue steroids, duonebs and zithromax. Consider tapering prednisone tomorrow. Increased frequency of falls-clinically does not appear to be syncope or presyncope,tele neg so far, likely from weakness. PT working with; will f/u recs re: rehab needs. Increased confusion, secondary to above, improving. dysuria/bacteruria: given sx, will start empiric CTX and send for cx as urine dips are sometimes inaccurate for detecting UTI. Monitor PVR. Congestive heart failure or more clinically dry at this point hold Lasix for now. DC IVF. continue his arb and beta blockers. [id number] fever, resolved no e/o infection. Abdominal pain-likely viral in nature, pt denies symptoms today, if recurs consider Abdominal CT DVT hep sq Diet cardiac Full code. Medical - PN: Qual - VTE Deep Vein Thrombosis/Pulmonary Embolism Present on Admission: No
[2017-05-06] MEDS: BUDESONIDE 0.5 MG/2 ML AMPUL.NEB NEB SCH ×2 (08:26→19:42)
[2017-05-06] MEDS: CYANOCOBALAMIN (VITAMIN B-12) 500 MCG TABLET PO SCH (08:41)
[2017-05-06] MEDS: TAMSULOSIN 0.4 MG CAPSULE PO SCH (08:41)
[2017-05-06] MEDS: LOSARTAN 25 MG TABLET PO SCH (08:42)
[2017-05-06] MEDS: ALLOPURINOL 100 MG TABLET PO SCH (08:42)
[2017-05-06] MEDS: FOLIC ACID 1 MG TABLET PO SCH (08:42)
[2017-05-06] MEDS: OMEPRAZOLE 20 MG CAPSULE PO SCH (08:42)
[2017-05-06] MEDS: AZITHROMYCIN 250 MG TABLET PO SCH (08:42)
[2017-05-06] MEDS: VITAMIN D3 1,000 UNIT TABLET PO SCH (08:45)
[2017-05-06] MEDS ORDERED: cefTRIAXone 1 GM in DEXTROSE 5% IN WATER 50 ML IV SCH (10:45)
[2017-05-06] MEDS ORDERED: ONDANSETRON 4 MG/2 ML VIAL IV PRN (10:50)
[2017-05-06] MEDS ORDERED: ACETAMINOPHEN 325 MG TABLET PO PRN (10:50)
[2017-05-06] MEDS ORDERED: HYDROcodone/APAP 5/325MG TABLET PO PRN (10:50)
[2017-05-06] MEDS ORDERED: MAGNESIUM HYDROXIDE 30 ML ORAL.SUSP PO PRN (10:50)
[2017-05-06] MEDS ORDERED: NALOXONE HCL 0.4 MG/ML VIAL IV PRN (10:50)
[2017-05-06] MEDS: cefTRIAXone 1 GM in DEXTROSE 5% IN WATER 50 ML IV SCH (11:42)
[2017-05-07] MEDS: IPRATROPIUM/ALBUTEROL 3 ML AMPUL.NEB NEB SCH ×3 (03:22→11:54)
[2017-05-07 06:11] LABS: Basophils # (Auto) 0 K/mcL (0.0-0.3); Basophils % (Auto) 0.1 % (0.0-2.0); Eosinophils # (Auto) 0.1 K/mcL (0.0-0.7); Eosinophils % (Auto) 0.5 % (0.0-7.0); Granulocytes % (Auto) 78.2 % (38.0-78.0); Lymphocytes # (Auto) 1.1 K/mcL (1.5-4.8); Lymphocytes % (Auto) 11.4 % (15.5-49.0); Mean Cell Volume 102.8 fL (80.0-100.0); Mean Corpuscular HGB Conc 33.8 g/dL (31.0-36.0); Mean Corpuscular Hemoglobin 34.7 pg (26.0-34.0); Monocytes % (Auto) 9.8 % (1.0-12.0); Platelet Count 231 K/mcL (140-440); RBC 3.29 M/mcL (4.50-5.90); Red Cell Distribution Width 14.7 % (11.5-14.5)
[2017-05-07 06:46] LABS: ALT/SGPT 10 U/l (0-40); Albumin 3.7 gm/dL (3.2-5.2); Albumin/Globulin Ratio 1.7 (1.0-2.3); Alkaline Phosphatase 49 U/L (39-117); Bilirubin,Direct < 0.2 mg/dL (0.0-0.3); Blood Urea Nitrogen 21 mg/dl (8-23); Gamma Glutamyl Transpeptidase 13 U/L (8-61); Magnesium 1.9 mg/dL (1.6-2.5); Uric Acid 4.3 mg/dL (2.5-8.0)
[2017-05-07] MEDS ORDERED: LEVOTHYROXINE 50 MCG TABLET PO SCH (07:30)
--- NOTE | 2017-05-07 07:39 | Internal Med Progress Note ---
Medical - PN: Subj Patient information: Note initiated : 05/07/17 at 7:12 am Service Date, if different from initiated Date: [] Patient: Cezar Damon a 82 y/o M admitted on 05/04/17 for Weakness, Dizziness, Nausea/COPD, Hyponatremia. Chief Complaint: [] Interval history: Mr. 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 Walking across the room without getting short of breath. He has had multiple episodes of falls, denies any presyncope or syncopal like episodes. The patient notes that he gets up from the bed and after while feels weak in his knees and drops down. He denies any acute head injury. The patient notes he may have had a viral syndrome ,and lower abdominal pain associated with some nausea over the last 1 week. he pain is intermittent in the lower abdomen, no aggravating or relieving factors, nonradiating, not associated with food always or micturition, He has had decline in his oral intake and has not eaten much since then. He admits to being compliant with his medications. 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 The patient presented to the ER where he had low-grade temperature of 99.9,his sodium level was 127 and chloride was 84, the rest of the blood work was unremarkable, he had a negative chest x-ray, negative CT head normal WBC count, and a normal TSH level. Given that the patient was weak and unable to return home safely with low sodium he was admitted to the hospital for further management. On my exam I noted that the patient also had wheezing,and decreased air entry bilaterally, which seems to be a chronic issue for him as his PCP also noted the same in his last note. but given the decline in his functional status I will treat them as COPD exacerbation with prednisone and nebulizers. 05/05: Patient seen examined, no acute events, feeling bit better, denies any abdominal symptoms, breathing better, but did not get out of bed this AM to know if his breathing is any better with activity. His labs reviewed NA is slightly worse at 126, will repeat this afternoon, his cortisol is low, but he did get prednisone last night, so not sure if this affected his readings, tsh is wnl. he appears more clear today. 05/06: Continues to improve mentally. No further dizziness. He had dysuria today and WBC are increasing. Urine dip shows no pyuria but does have bacteria, and given his sx, will start CTX and send for cx. DC IVF as he is eating and drinking well and hypoNa has resolved. Has had no significant arrhythmias; will DC tele. Discussed with and patient today that he is not ready to DC today d/t increasing WBC and likely will be here until Monday. 05/07: WBC are back down; urine cx shows NGTD. - Constitutional Vitals: Vital Signs Temp Pulse Resp BP Pulse Ox 96.8 F L 64 20 149/71 92 05/07/17 04:00 05/07/17 04:00 05/07/17 04:00 05/07/17 04:00 05/07/17 04:00 Period Temp Pulse Resp BP Sys/Soriano Pulse Ox Last 24 Hr 96.8 F-98.0 F 52-70 16-22 123-151/69-86 90-97 Intake and Output 05/06/17 05/07/17 05/07/17 21:59 05:59 13:59 Intake Total 640 / 640 200 / 200 Output Total 675 / 675 1001 / 1001 300 / 300 Balance -35 / -35 -801 / -801 -300 / -300 Weight 202 lb Intake & Output: Intake & Output 05/06/17 05/07/17 05/07/17 21:59 05:59 13:59 Intake Total 640 / 640 200 / 200 Output Total 675 / 675 1001 / 1001 300 / 300 Balance -35 / -35 -801 / -801 -300 / -300 Weight 202 lb Intake: Oral 640 / 640 200 / 200 Output: Void Amount 675 / 675 1000 / 1000 300 / 300 # of times incontinent of 1 / 1 urine Other: Meal Dinner Percent of Meal Consumed 25% Feeding Ability Assist with Tray Set Up # Voids 1 2 Medical - PN: Obj Da - Labs CBC & Chem 7: 05/07/17 04:51 05/07/17 04:51 Labs: Abnormal Lab Results 05/07/17 05/07/17 05/06/17 04:51 04:51 04:00 WBC RBC 3.29 L Hgb 11.4 L Hct 33.8 L MCV 102.8 H MCH 34.7 H RDW 14.7 H Gran % 78.2 H Lymph % (Auto) 11.4 L Gran # Lymph # (Auto) 1.1 L [place] # (Auto) 1.0 H Sodium 132 L Chloride Carbon Dioxide 21 L Glucose 122 H Calcium 8.3 L Phosphorus 2.4 L Total Protein 5.4 L Globulin 2.0 L Cortisol AM Sample Urine Ketones Urine Bacteria 05/06/17 05/05/17 05/05/17 04:00 21:03 12:56 WBC 12.4 H RBC 2.93 L Hgb 10.2 L Hct 30.0 L MCV 102.5 H MCH 34.8 H RDW Gran % 88.7 H Lymph % (Auto) 4.6 L Gran # 11.0 H Lymph # (Auto) 0.6 L [place] # (Auto) Sodium 130 L Chloride Carbon Dioxide 18 L Glucose 116 H Calcium 8.2 L Phosphorus Total Protein Globulin Cortisol AM Sample Urine Ketones 5/tr A Urine Bacteria Few A 05/05/17 05/05/17 05/05/17 04:20 04:20 04:20 WBC RBC 3.36 L Hgb 11.7 L Hct 34.6 L MCV 102.9 H MCH 34.9 H RDW Gran % 90.2 H Lymph % (Auto) 8.0 L Gran # Lymph # (Auto) 0.5 L [place] # (Auto) Sodium 126 L Chloride 91 L Carbon Dioxide Glucose 117 H Calcium 8.3 L Phosphorus Total Protein Globulin Cortisol AM Sample 3.9 L Urine Ketones Urine Bacteria Meds: Medications Acetaminophen (Tylenol) 650 mg PO Q6HP PRN PRN Reason: PAIN/FEVER > 101 Hydrocodone Bitart/Acetaminophen ([place] 5/325mg) 1 tab PO Q4HP PRN PRN Reason: Pain Albuterol/Ipratropium (Duoneb) 3 ml NEB Q4HRT [facility] Last Admin: 05/07/17 03:22 Dose: 3 ml Allopurinol (Zyloprim) 100 mg PO QDAY DEEJAY Azithromycin (Zithromax) 500 mg PO DAILY [facility] Stop: 05/08/17 09:01 Budesonide (Pulmicort) 0.25 mg NEB Q12 [facility] Last Admin: 05/06/17 19:42 Dose: 0.25 mg Carvedilol (Coreg) 6.25 mg PO BIDCC [facility] Last Admin: 05/06/17 17:55 Dose: 6.25 mg Cyanocobalamin (Vitamin B-12) 1,000 mcg PO DAILY DEEJAY Folic Acid (Folic Acid) 1 mg PO DAILY [facility] Ceftriaxone Sodium 1 gm/ (Dextrose) 50 mls @ 100 mls/hr IV Q24H [facility] Last Infusion: 05/06/17 13:28 Dose: Infused Levothyroxine Sodium (Synthroid) 50 mcg PO QAMAC [facility] Losartan Potassium (Cozaar) 25 mg PO DAILY [facility] Magnesium Hydroxide (Milk Of Magnesia) 30 ml PO DAILYP PRN PRN Reason: Constipation Naloxone HCl (Narcan) 0.1 mg IV Q2MIN PRN PRN Reason: Opiate Reversal Omeprazole (Prilosec) 20 mg PO QDAY [facility] Ondansetron HCl (Zofran) 4 mg IV Q4HP PRN PRN Reason: Nausea And Vomiting Prednisone (Prednisone) 40 mg PO QAMCC [facility] Tamsulosin HCl (Flomax) 0.4 mg PO QDAY [facility] Vitamin D (Vitamin D3) 2,000 unit PO DAILY [facility] Medical - PN: A/P - Time Spent With Patient Total time spent is greater than 50% in coordination of care (as documented) at patient's floor/unit and/or counseling patient: - Narrative A/P Narrative: A/P Acute Hyponatremia: clinically dry, poor intake, along with use of lasix may have resulted in Hypovolemic hyponatremia. Na 132 today; will DC IVF COPD exacerbation: clinically improving, continue steroids, duonebs and zithromax. Consider tapering prednisone tomorrow. Increased frequency of falls-clinically does not appear to be syncope or presyncope,tele neg so far, likely from weakness. PT working with; will f/u recs re: rehab needs. Increased confusion, secondary to above, improving. dysuria/bacteruria: given sx, will start empiric CTX and send for cx as urine dips are sometimes inaccurate for detecting UTI. Monitor PVR. Congestive heart failure or more clinically dry at this point hold Lasix for now. DC IVF. continue his arb and beta blockers. [id number] fever, resolved no e/o infection. Abdominal pain-likely viral in nature, pt denies symptoms today, if recurs consider Abdominal CT DVT hep sq Diet cardiac Full code. Medical - PN: Qual - VTE Deep Vein Thrombosis/Pulmonary Embolism Present on Admission: No
[2017-05-07] MEDS ORDERED: predniSONE 20 MG TABLET PO SCH (08:00)
[2017-05-07] MEDS: cefTRIAXone 1 GM in DEXTROSE 5% IN WATER 50 ML IV SCH (08:37)
[2017-05-07] MEDS: BUDESONIDE 0.5 MG/2 ML AMPUL.NEB NEB SCH (08:38)
[2017-05-07] MEDS: CARVEDILOL 3.125 MG TABLET PO SCH (08:39)
[2017-05-07] MEDS ORDERED: FOLIC ACID 1 MG TABLET PO SCH (09:00)
[2017-05-07] MEDS ORDERED: AZITHROMYCIN 250 MG TABLET PO SCH (09:00)
[2017-05-07] MEDS ORDERED: TAMSULOSIN 0.4 MG CAPSULE PO SCH (09:00)
[2017-05-07] MEDS ORDERED: LOSARTAN 25 MG TABLET PO SCH (09:00)
[2017-05-07] MEDS ORDERED: VITAMIN D3 1,000 UNIT TABLET PO SCH (09:00)
[2017-05-07] MEDS ORDERED: ALLOPURINOL 100 MG TABLET PO SCH (09:00)
[2017-05-07] MEDS ORDERED: FINASTERIDE 5 MG TABLET PO SCH (09:00)
[2017-05-07] MEDS ORDERED: CYANOCOBALAMIN (VITAMIN B-12) 500 MCG TABLET PO SCH (09:00)
[2017-05-07] MEDS ORDERED: OMEPRAZOLE 20 MG CAPSULE PO SCH (09:00)
--- NOTE | 2017-05-07 09:12 | Discharge Summary ---
Medical - DS: Prov Patient information: Note initiated : 05/07/17 at 9:02 am Service Date, if different from initiated Date: [] Patient: Cezar Damon 82 y/o M admitted on 05/04/17 for Weakness, Dizziness, Nausea/COPD, Hyponatremia. Chief Complaint: Weakness Date of admission: 05/04/17 20:14 Discharge date: 05/07/17 Primary care physician: Chepe Jonier Admitting clinician: Fernando Wilson Discharging clinician: Renata Redd Medical - DS: Meds - Discharge Medications Prescriptions: Ciprofloxacin HCl [Cipro] 250 mg PO BID #5 tablet Finasteride [Proscar] 5 mg PO DAILY #30 tablet predniSONE [Prednisone] 40 mg PO [facility] #3 tablet Active and Home Medications: Home Medications cyanocobalamin (vit B-12) 1,000 mcg tablet 1,000 mcg PO QDAY tab 07/06/15 [ History Confirmed 05/04/17 Last Taken Unknown] cholecalciferol (vitamin D3) 2,000 unit capsule 2,000 unit PO QDAY 04/05/16 [ History Confirmed 05/04/17 Last Taken Unknown] clobetasol 0.05 % topical cream 1 applic TOPICAL BID #15 g 06/28/16 [Rx Confirmed 05/04/17 Last Taken Unknown] tamsulosin 0.4 mg capsule 0.4 mg PO QDAY #90 cap 06/28/16 [Rx Confirmed Last Taken Unknown] carvedilol 6.25 mg tablet 6.25 mg PO BID #180 tab 11/10/16 [Rx Confirmed Last Taken Unknown] omeprazole 20 mg capsule,delayed release 20 mg PO QDAY #90 cap 11/10/16 [Rx Confirmed 05/04/17 Last Taken Unknown] ipratropium-albuterol 0.5 mg-3 mg(2.5 mg base)/3 mL nebulization soln 3 ml INHALATION Q6HP PRN #120 ml 11/14/16 [Rx Confirmed 05/04/17 Last Taken Unknown] levothyroxine 50 mcg capsule 50 mcg PO QDAY 90 Days 11/16/16 [Rx Confirmed 05/04 Last Taken Unknown] allopurinol 100 mg tablet 100 mg PO QDAY #90 tab 01/30/17 [Rx Confirmed Last Taken Unknown] folic acid 1 mg tablet 1 mg PO DAILY #90 tab 03/17/17 [Rx Confirmed 05/04/17 Last Taken Unknown] valsartan 40 mg tablet 40 mg PO QDAY #90 tab 03/17/17 [Rx Confirmed 05/04/17 Last Taken Unknown] furosemide 40 mg tablet 40 mg PO QDAY #90 tab 03/22/17 [Rx Confirmed 05/04/17 Last Taken Unknown] budesonide 0.25 mg/2 mL suspension for nebulization 0.25 mg INHALATION BID #120 ml 04/11/17 [Rx Confirmed 05/04/17 Last Taken Unknown] Medical - DS: Hosp Hospital course: Mr. Damon is a 82 year old male with a history of CHF, COPD await, mild memory loss who was admitted on 05/04/17 with weakness and malaise 1 week. He was found to have COPD exacerbation and hypovolemic hyponatremia. He was treated with prednisone and azithromycin for his COPD exacerbation. His home Lasix was held and he was given IV fluids. He is euvolemic on discharge and his Lasix continues to be held. His weakness and malaise improved with this therapy. He was evaluated by physical therapy who recommended home health. On hospital day 3, he developed dysuria and leukocytosis. Urine dip showed bacteriuria. This was sent for culture as urine dips and be inaccurate for diagnosing UTI. He has had post void residuals of 400 that are currently being managed by double voiding. He is on Flomax already and finasteride has been added. Follow-up issues: 1. Urine culture is still pending. No growth to date 2. Respiratory status on prednisone taper. His volume status also needs monitored as his Lasix has been stopped here in hospital. He had his has been counseled on monitoring for volume overload with daily weights and respiratory symptoms. 3. Urinary retention. Consider urology consult if symptoms do not improve on Flomax and finasteride. Discharge diagnosis: copd exacerbation Secondary discharge diagnosis: hypovolemic hyponatremia complicated UTI - Time Spent with Patient Total time spent providing and/or coordinating discharge services: Greater than 30 minutes Medical - DS: Exam - Constitutional Vitals: Vital Signs Temp Pulse Pulse Resp BP BP BP 05/07/17 08:39 80 18 05/07/17 07:16 97.6 F 66 15 138/60 05/07/17 04:00 96.8 F L 64 20 149/71 05/07/17 00:00 97.8 F 60 22 151/86 05/06/17 23:32 56 L 16 05/06/17 23:31 05/06/17 20:00 98.0 F 68 16 149/71 05/06/17 19:54 56 L 16 05/06/17 19:53 05/06/17 15:36 70 18 05/06/17 15:35 05/06/17 12:00 98.0 F 16 123/76 05/06/17 11:57 52 L 16 Pulse Ox 05/07/17 08:39 05/07/17 07:16 90 05/07/17 04:00 92 05/07/17 00:00 97 05/06/17 23:32 96 05/06/17 23:31 96 05/06/17 20:00 96 05/06/17 19:54 05/06/17 19:53 93 05/06/17 15:36 05/06/17 15:35 90 05/06/17 12:00 92 05/06/17 11:57 Intake and Output 05/06/17 05/07/17 05/07/17 21:59 05:59 13:59 Intake Total 640 / 640 200 / 200 Output Total 675 / 675 1001 / 1001 626 / 626 Balance -35 / -35 -801 / -801 -626 / -626 Intake: Oral 640 / 640 200 / 200 Output: Void Amount 675 / 675 1000 / 1000 625 / 625 # of times incontinent of urine Other: Meal Dinner Percent of Meal Consumed 25% Feeding Ability Assist with Tray Set Up # Voids 1 2 Weight 202 lb - Head Head exam: Present: atraumatic - Respiratory Respiratory exam: Present: normal respiratory exam, CTAB - Cardiovascular Cardiovascular exam: Present: normal rate and rhythm - Extremities Exam Extremities exam: Absent: pedal edema - Neurological Exam Neurological exam: Present: alert, CN II-XII intact, oriented X3 Medical - DS: Data Labs on day of discharge: Labs from last 24 hours 05/07/17 05/07/17 04:51 04:51 WBC 9.9 RBC 3.29 L Hgb 11.4 L Hct 33.8 L MCV 102.8 H MCH 34.7 H MCHC 33.8 RDW 14.7 H Plt Count 231 MPV 7.9 Gran % 78.2 H Lymph % (Auto) 11.4 L [place] % (Auto) 9.8 Eos % (Auto) 0.5 Baso % (Auto) 0.1 Gran # 7.7 Lymph # (Auto) 1.1 L [place] # (Auto) 1.0 H Eos # (Auto) 0.1 Baso # (Auto) 0 Sodium 134 Potassium 4.2 Chloride 99 Carbon Dioxide 23 Anion Gap 12.0 BUN 21 Creatinine 1.0 GFR Calculation 69 Glucose 96 Uric Acid 4.3 Calcium 8.9 Phosphorus 2.4 L Magnesium 1.9 Total Bilirubin 0.4 Direct Bilirubin < 0.2 GGT 13 AST 15 ALT 10 Alkaline Phosphatase 49 Lactate Dehydrogenase 191 Total Protein 5.9 Albumin 3.7 Globulin 2.2 Albumin/Globulin Ratio 1.7 Triglycerides 71 Preliminary micro results at discharge 05/04/17 20:30 Blood Culture - Preliminary Blood 05/05/17 21:03 Urine Culture - Preliminary Urine - Clean Void [facility] - DS: A/P - Patient/Caregiver Discharge Instructions Activity: ambulate only with your walker Diet: Regular Diet Additional Instructions: 1. COPD exacerbation: Continue the prednisone for several more days. Continue budesonide and DuoNeb nebulizer treatments. If you develop fever, cough or worsening shortness of breath, notify your primary care provider or return to the ER. 2. Weakness: This is likely related to a low sodium level. Your sodium was low because you were dehydrated. Your Lasix/furosemide (water pill) has been held. If you develop swelling, your weight increases by more than 3 pounds in 1 day, or you have trouble breathing, notify your primary care provider or return to the ER. 3. Urinary tract infection: You are being treated for urinary tract infection. Please continue the ciprofloxacin/Cipro for this. Your urine culture is currently pending. Your risk for urinary tract infection is that you don't empty your bladder well. You have been placed on Flomax and finasteride to help her bladder empty better. Continue using the double voiding method as you have been doing in the hospital. Asked Dr. Joiner whether you need a urology consult or not. - Follow up Plan Follow up with: Chepe Joiner MD [Primary Care Provider] - Disposition: Home Health Service Prognosis: Fair Rehab Potential: Good I certify that the patient requires SNF services: No Overall status at discharge: patient is progressing back to baseline Medical - DS: Qual - VTE Deep Vein Thrombosis/Pulmonary Embolism Present on Admission: No
== END 2017-05-07 12:05 | disposition home health service (06) | DRG 191 ==
LOC: ED 16:04 → ICU 20:00 → MEDSUR 05-06 15:55
PROVIDERS: ADMIT Internal Medicine; ATTEND Internal Medicine